=== PATIENT | male | born 1930 | race Caucasian/White ===

== ENCOUNTER 2018-04-24 17:09 | Emergency (ER) | payer MEDICARE, BC ==
[~2018-04-24] VITALS: Ht 177.8 cm; Wt 79.4 kg
== END 2018-04-24 17:59 | disposition home or self-care (01) ==
LOC: ER 17:09
DX: S01.01XA Laceration without foreign body of scalp, initial encounter (principal); W22.8XXA Striking against or struck by other objects, initial encounter; Z87.891 Personal history of nicotine dependence
CPT/HCPCS: 90471; 90714; 99283